=== PATIENT | female | born 1990 | race Caucasian/White ===

== ENCOUNTER 2017-10-10 09:37 | Emergency (ER) | payer OTHER ==
[2017-10-10 09:48] VITALS: BP 133/96
[2017-10-10] MEDS ORDERED: HYDROmorphone 0.5 MG/0.5 ML Syringe IVPUSH ONE ×2 (10:05→12:44)
[2017-10-10] MEDS ORDERED: Metoclopramide 10 MG/2 ML SDV IVPUSH ONE (10:06)
--- NOTE | 2017-10-10 10:09 | EDM.PDOC ---
ED HPI GENERAL MEDICAL PROBLEM - General Chief Complaint: Abdominal Pain Stated Complaint: ABDOMINAL PAIN Time Seen by Provider: 10/10/17 10:04 Source of Information: Reports: Patient History Limitations: Reports: No Limitations - History of Present Illness INITIAL COMMENTS - FREE TEXT/NARRATIVE: 26-year-old female sent to the ED with acute onset of severe abdominal pain. Seem to start in the upper abdomen radiate down into the pelvis. She was at work when this occurred. She felt fine when she got up this morning. She has not had much to eat yet some essential oils and some water only. Pain was intense enough to make her nearly vomit but she did not. Of note she is expecting her period in the next 4-5 days. She is trying to conceive and not using any form of control. Bowel function is normal. No genitourinary complaints. Previous surgery includes a laparoscopic appendectomy. She has not been in the past. Feels warm and flushed. Pain does radiate into her lower back Onset: Today Onset Date: 10/10/17 Onset Time: 08:00 Duration: Hour(s): Location: Reports: Abdomen (Bout 2 hours ago see history present illness) Quality: Reports: Ache, Other Severity: Moderate (Abdominal pain is sharp and stabbing with intermittent colicky component.) Improves with: Reports: None ( Pain is 8-9 out of 10) Worsens with: Reports: Other, Movement Context: Reports: Other. Denies: Activity (Deep breathing. She walks function over.), Exercise, Lifting, Sick Contact, Trauma Associated Symptoms: Reports: Nausea/Vomiting. 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 (see below) (None.) Upper Abdomen Pain Score (Numeric/FACES): 6 - Related Data Allergies Allergy/AdvReac Type Severity Reaction Status Date / Time No Known Allergies Allergy Verified 11/16/15 11:54 Home Meds: Home Meds Vaginal Suppository Applicator 1 dose VAG BID 10/10/17 [History] Past Medical History - Past Health History Medical/Surgical History: Denies Medical/Surgical History HEENT History: Reports: Impaired Vision - Past Surgical History Other HEENT Surgeries/Procedures: wisdom teeth removed GI Surgical History: Reports: Appendectomy Social & Family History - Tobacco Use Smoking Status *Q: Current Every Day Smoker Years of Tobacco use: 4 Packs/Tins Daily: 0.2 - Caffeine Use Caffeine Use: Reports: Coffee - Recreational Drug Use Recreational Drug Use: No - Living Situation & Occupation Living situation: Reports: Occupation: Employed ED ROS GENERAL - Review of Systems Review Of Systems: See Below Constitutional: Reports: Fever (Feels hot and flushed have joint was 38.55 nurses recording.), Malaise, Weakness, Decreased Appetite HEENT: Reports: No Symptoms Respiratory: Reports: No Symptoms Cardiovascular: Reports: No Symptoms Endocrine: Reports: No Symptoms GI/Abdominal: Reports: Abdominal Pain (Particularly just above the umbilicus but radiates down into both sides of the pelvis and suprapubically and into her lower back.). Denies: Diarrhea, Decreased Appetite, Difficulty Swallowing, Distension, Flatus, Hematemesis, Hematochezia, Melena, Mucous in Stool : Reports: No Symptoms Musculoskeletal: Reports: Back Pain Skin: Reports: No Symptoms Neurological: Reports: No Symptoms ED EXAM, GI/ABD - Physical Exam Exam: See Below Exam Limited By: No Limitations General Appearance: Alert, Moderate Distress Eyes: Bilateral: Normal Appearance (In obvious discomfort. No jaundice) Throat/Mouth: Normal Inspection, Normal Lips, Normal Teeth, Normal Oropharynx Head: Atraumatic, Normocephalic Neck: Normal Inspection, Supple, Non-Tender, Full Range of Motion. No: Lymphadenopathy (L), Lymphadenopathy (R) Respiratory/Chest: No Respiratory Distress, Lungs Clear, Normal Breath Sounds, Chest Non-Tender, Other Cardiovascular: Normal Peripheral Pulses (Deep breathing does make the abdominal pain worse.), Regular Rate, Rhythm, No Edema, No Gallop, No Murmur GI/Abdominal Exam: No Organomegaly, Guarding, Tender (Patient is very tender left lower quadrant right lower quadrant and suprapubically with guarding.), Abnormal Bowel Sounds (Absence of bowel sounds.), Other (Abdomen is firm to palpation and she is fairly well muscled. She has a linear surgical incision left lateral lower abdominal wall from a skin lesion removal.) Rectal (Female) Exam: Normal Exam Back Exam: Normal Inspection, Full Range of Motion Extremities: Normal Inspection, Normal Range of Motion, Non-Tender, No Pedal Edema Neurological: Alert, Oriented, CN II-XII Intact, Normal Cognition, Normal Gait Psychiatric: Normal Affect, Normal Mood Skin Exam: Warm, Dry, Intact, Normal Color Course - Vital Signs Last Recorded V/S: Last Vital Signs Temp 38.5 C H 10/10/17 09:46 Pulse 85 10/10/17 09:46 Resp 15 10/10/17 09:46 BP 133/96 H 10/10/17 09:46 Pulse Ox 100 10/10/17 09:46 - Orders/Labs/Meds Orders: Active Orders 24 hr Category Date Time Status ABO/RH TYPE [BBK] Stat Lab 10/10/17 10:25 Results PATIENT RETYPE [BBK] Stat Lab 10/10/17 10:25 Results Labs: Laboratory Tests 10/10/17 10/10/17 10/10/17 Range/Units 10:25 10:25 10:25 WBC 7.54 (3.98-10.04) K/mm3 RBC 4.26 (3.98-5.22) M/mm3 Hgb 13.1 (11.2-15.7) gm/L Hct 38.8 (34.1-44.9) % MCV 91.1 (79.4-94.8) fl MCH 30.8 (25.6-32.2) pg MCHC 33.8 (32.2-35.5) g/dl RDW Std Deviation 45.7 (36.4-46.3) fL Plt Count 243 (182-369) K/mm3 MPV 10.7 (9.4-12.3) fl Neutrophils % (Manual) 49 (40-60) % Band Neutrophils % 0 (0-10) % Lymphocytes % (Manual) 46 H (20-40) % Atypical Lymphs % 0 % Monocytes % (Manual) 5 (2-10) % Eosinophils % (Manual) 0 L (0.7-5.8) % Basophils % (Manual) 0 L (0.1-1.2) Platelet Estimate Adequate RBC Morph Comment Normal Sodium 138 (136-145) mEq/L Potassium 4.1 (3.5-5.1) mEq/L Chloride 105 (98-107) mEq/L Carbon Dioxide 24 (21-32) mEq/L Anion Gap 13.1 (5-15) BUN 12 (7-18) mg/dL Creatinine 0.6 (0.55-1.02) mg/dL Est Cr Clr Drug Dosing 145.88 mL/min Estimated GFR (MDRD) > 60 (>60) mL/min BUN/Creatinine Ratio 20.0 H (14-18) Glucose 89 (74-106) mg/dL Calcium 8.8 (8.5-10.1) mg/dL Total Bilirubin 0.3 (0.2-1.0) mg/dL AST 21 (15-37) U/L ALT 24 (14-59) U/L Alkaline Phosphatase 68 (46-116) U/L C-Reactive Protein < 0.2 (<1.0) mg/dL Total Protein 7.7 (6.4-8.2) g/dl Albumin 4.0 (3.4-5.0) g/dl Globulin 3.7 gm/dL Albumin/Globulin Ratio 1.1 (1-2) Lipase 100 (73-393) U/L HCG, Qual Negative (NEGATIVE) Urine Color (Yellow) Urine Appearance (Clear) Urine pH (5.0-8.0) Ur Specific [place] (1.005-1.030) Urine Protein (Negative) Urine Glucose (UA) (Negative) Urine Ketones (Negative) Urine Occult Blood (Negative) Urine Nitrite (Negative) Urine Bilirubin (Negative) Urine Urobilinogen (0.2-1.0) Ur Leukocyte Esterase (Negative) Urine RBC (0-5) /hpf Urine WBC (0-5) /hpf Ur Epithelial Cells (0-5) /hpf Urine Bacteria (FEW) /hpf Urine Mucus (FEW) /hpf Blood Type 10/10/17 10/10/17 Range/Units 10:25 10:45 WBC (3.98-10.04) K/mm3 RBC (3.98-5.22) M/mm3 Hgb (11.2-15.7) gm/L Hct (34.1-44.9) % MCV (79.4-94.8) fl MCH (25.6-32.2) pg MCHC (32.2-35.5) g/dl RDW Std Deviation (36.4-46.3) fL Plt Count (182-369) K/mm3 MPV (9.4-12.3) fl Neutrophils % (Manual) (40-60) % Band Neutrophils % (0-10) % Lymphocytes % (Manual) (20-40) % Atypical Lymphs % % Monocytes % (Manual) (2-10) % Eosinophils % (Manual) (0.7-5.8) % Basophils % (Manual) (0.1-1.2) Platelet Estimate RBC Morph Comment Sodium (136-145) mEq/L Potassium (3.5-5.1) mEq/L Chloride (98-107) mEq/L Carbon Dioxide (21-32) mEq/L Anion Gap (5-15) BUN (7-18) mg/dL Creatinine (0.55-1.02) mg/dL Est Cr Clr Drug Dosing mL/min Estimated GFR (MDRD) (>60) mL/min BUN/Creatinine Ratio (14-18) Glucose (74-106) mg/dL Calcium (8.5-10.1) mg/dL Total Bilirubin (0.2-1.0) mg/dL AST (15-37) U/L ALT (14-59) U/L Alkaline Phosphatase (46-116) U/L C-Reactive Protein (<1.0) mg/dL Total Protein (6.4-8.2) g/dl Albumin (3.4-5.0) g/dl Globulin gm/dL Albumin/Globulin Ratio (1-2) Lipase (73-393) U/L HCG, Qual (NEGATIVE) Urine Color Yellow (Yellow) Urine Appearance Clear (Clear) Urine pH 6.5 (5.0-8.0) Ur Specific [place] 1.025 (1.005-1.030) Urine Protein Negative (Negative) Urine Glucose (UA) Negative (Negative) Urine Ketones 1+ H (Negative) Urine Occult Blood Negative (Negative) Urine Nitrite Negative (Negative) Urine Bilirubin Negative (Negative) Urine Urobilinogen 0.2 (0.2-1.0) Ur Leukocyte Esterase Negative (Negative) Urine RBC 0-5 (0-5) /hpf Urine WBC 0-5 (0-5) /hpf Ur Epithelial Cells 0-5 (0-5) /hpf Urine Bacteria Few (FEW) /hpf Urine Mucus Few (FEW) /hpf Blood Type B POSITIVE Meds: Medications Discontinued Medications Generic Name Dose Route Start Last Admin Trade Name Freq PRN Reason Stop Dose Admin Diphenhydramine HCl 25 mg 10/10/17 12:44 10/10/17 12:56 Benadryl IVPUSH 10/10/17 12:45 25 mg ONETIME ONE Administration Hydromorphone HCl 0.5 mg 10/10/17 10:05 10/10/17 10:27 Dilaudid IVPUSH 10/10/17 10:06 0.5 mg ONETIME ONE Administration Hydromorphone HCl 0.5 mg 10/10/17 12:44 10/10/17 12:58 Dilaudid IVPUSH 10/10/17 12:45 0.5 mg ONETIME ONE Administration Dextrose/Sodium Chloride 1,000 mls @ 999 mls/hr 10/10/17 10:15 10/10/17 10:27 Dextrose 5%-Normal Saline IV 999 mls/hr ASDIRECTED SABRA Administration Magnesium Citrate 180 ml 10/10/17 14:01 10/10/17 14:25 Citrate Of Magnesia PO 10/10/17 14:02 180 ml ONETIME ONE Administration Metoclopramide HCl 7.5 mg 10/10/17 10:06 10/10/17 10:26 Reglan IVPUSH 10/10/17 10:07 7.5 mg ONETIME ONE Administration Ondansetron HCl 4 mg 10/10/17 12:44 10/10/17 12:55 Zofran IVPUSH 10/10/17 12:45 4 mg ONETIME ONE Administration - Radiology Interpretation Free Text/Narrative:: 26-year-old female presents the ED with development of sudden onset of severe central abdominal pain kind of in the suprapubic area and supraumbilical area and seems to radiate up and down. Pain came on suddenly when she was seated at her desk at work this morning. Pain was very sharp stabbing and tends to move around. Pain has been intense for an hour however associate with nausea without any vomiting. Was did move this morning and were normal. Of note she is attempting and expecting her period in about 5 days' time. She is not using any form of control. Plan routine labs including a beta-hCG. IV will be D5 normal saline at 150 mils per hour. Given Dilaudid 1.5 mg IV with Reglan 7.5 mg IV for initial pain and nausea relief. - Re-Assessments/Exams Free Text/Narrative Re-Assessment/Exam: 10/10/17 12:39 Labs reveal a total white count of 7.54 with a hemoglobin of 13.1. Hematocrit is 38.8. Differential is 49% neutrophils and 46% lymphocytes which is slightly elevated. Chemistry shows a sodium of 138 potassium of 4.1. Chloride 105 bicarbonate 24. And a gap is 13.1. The wind is 12. Creatinine is 0.6. GFR is greater than 60. Glucose is 89. Liver function is normal. Lipase is 100 hCG was negative. Urinalysis shows 1+ ketones only with no signs of infection or hematuria. 10/10/17 12:45 patient is feeling nauseated and the pain is coming in waves. She will be for a KUB and then be have a transvaginal ultrasound to rule out a ruptured ovarian cyst which I believe is what she has clinically. We'll give her Zofran 4 mg IV with Benadryl 25 mg IV to prevent a dystonic reaction with Zofran and Reglan. Repeat Dilaudid 0.5 mg IV. 10/10/17 13:24 KUB does reveal increased stool in the left hemicolon and perhaps some free fluid down in the abdomen pelvis. Is a large amount of air distending the right hemicolon and transverse colon. 10/10/17 14:00 Transvaginal ultrasound also does not reveal any abnormalities of the ovaries or any free fluid in the pelvis. It therefore appears that her pain is mostly from constipation with large volume of air distending the colon causing her acute pain. Treatment will be 6 ounces of Citroma orally with 5 ounces of juice to provide bowel cleanse. This should relieve her abdominal pain completely. If not she is to return to care. Departure - Departure Time of Disposition: 14:03 Disposition: Home, Self-Care 01 Condition: Fair Clinical Impression: Constipation by delayed colonic transit Abdominal pain Qualifiers: Abdominal location: lower abdomen, unspecified Qualified Code(s): R10.30 - Lower abdominal pain, unspecified - Discharge Information Instructions: Abdominal Pain, Adult, [id number] Referrals: PCP,None [Primary Care Provider] - Forms: ED Department Discharge, ED Return to Work/School Form Additional Instructions: Evaluation in the emergency room today in regards to acute onset of severe lower abdominal pain while seated at her desk at work today. Concern arose as you are attempting and. Is due within the next week. Pain was compatible with an ovarian cyst rupture or ectopic . Lab work however reveals point she test to be negative. The lab some cells were essentially normal. Urinalysis is also normal. An x-ray of the abdomen shows increased stool and a large amount of air distending the colon on the left side and upper abdomen. There is increased stool in the left lower colon that is causing a bit of a plug and causing your abdominal pain. Pelvic ultrasound was also ordered to rule out any ovarian involvement in pain. The ovaries appeared to be healthy with follicular cysts evident bilaterally sign of hemorrhagic cyst or rupture. Treatment is therefore magnesium citrate 6 ounces of this medicine by mouth with 5 ounces of juice of choice or Gatorade Powerade. This usually starts to work in 1-2 hours and will produce 2 or 2 formed bowel movements and should clear your abdominal pain completely. They eat and drink per normal. Return to medical care for bowel pain not gone after bowel cleanse. - My Orders Last 24 Hours: My Active Orders 10/10/17 10:25 ABO/RH TYPE [BBK] Stat PATIENT RETYPE [BBK] Stat - Assessment/Plan Last 24 Hours: My Active Orders 10/10/17 10:25 ABO/RH TYPE [BBK] Stat PATIENT RETYPE [BBK] Stat
[2017-10-10] MEDS ORDERED: Dextrose 5%-0.9% NaCl 1,000 ML IV SCH (10:15)
[2017-10-10] MEDS ORDERED: Ondansetron 4 MG/2 ML SDV IVPUSH ONE (12:44)
[2017-10-10] MEDS ORDERED: diphenhydrAMINE 50 MG/ML SDV IVPUSH ONE (12:44)
[2017-10-10] MEDS ORDERED: Magnesium Citrate Solution 296 ML Bottle PO ONE (14:01)
--- NOTE | 2017-10-10 14:32 | US ---
Pelvic ultrasound: Multiple real-time images were obtained transvaginally of the pelvis. Comparison: Uterus is anteverted. No myometrial abnormality is seen. Endometrial thickness is 8 mm. No nabothian cysts are seen. Ovaries show normal follicles. No larger cyst or solid abnormality is seen. No free fluid is identified. Measurements: Uterus: Length 6.4 cm, AP height 3.1 cm, transverse width of 5.0 cm Right ovary: 3.7 x 1.7 x 2.2 cm Left ovary: 3.4 x 2.0 x 2.2 cm Impression: 1. No abnormality is identified on pelvic ultrasound exam. Diagnostic code #1
--- NOTE | 2017-10-10 14:44 | CR ---
Abdomen: Supine view of the abdomen was obtained. Slight increased gas within the colon is seen and felt to be normal variant. Bowel gas pattern is otherwise unremarkable. No abnormal calcifications or soft tissue abnormality is seen. Impression: 1. Slight increased gas within the colon as noted above. 2. Supine abdominal study is otherwise unremarkable. Diagnostic code #1
== END 2017-10-10 14:30 | disposition home or self-care (01) ==
LOC: JD.ED 09:37
DX: K59.01 Slow transit constipation (principal); F17.210 Nicotine dependence, cigarettes, uncomplicated
CPT/HCPCS: 36415; 74018; 76830; 80053; 81001; 83690; 84703; 85025; 86140; 86900; 86901; 96361; 96374; 96375; 96376; 99285; A9270; J1170; J1200; J2405; J2765; J7042; 99284

== ENCOUNTER 2017-10-14 17:14 | Emergency (ER) | payer OTHER ==
[2017-10-14 17:32] VITALS: BP 129/97
--- NOTE | 2017-10-14 17:45 | EDM.PDOC ---
ED HPI GENERAL MEDICAL PROBLEM - General Chief Complaint: Gastrointestinal Problem Stated Complaint: BOWEL ISSUES Time Seen by Provider: 10/14/17 17:40 Source of Information: Reports: Patient History Limitations: Reports: No Limitations - History of Present Illness INITIAL COMMENTS - FREE TEXT/NARRATIVE: 26-year-old female presents to the ED with diffuse abdominal bloat and pressure discomfort in the rectum. I had seen her through the ED 4 days ago when she developed sudden onset of severe suprapubic pain rating up into the epigastrium. Workup at that time included lab work KUB rule out and she actually at a transvaginal ultrasound to make sure she did not have a ruptured ovarian cyst. No cystic masses were identified in the ovaries. She is trying to conceive and expects appear to be due this weekend. She did have increased stool throughout the left hemicolon was treated with Citroma 6 ounces by mouth. She states this relieved her abdominal pain and get her bowels working once or twice that day. Subsequently she's not had a bowel movement. Today she feels a lot of pressure in the rectum and is getting some liquid stool but no formed stool. She reports she still has an appetite and is eating normally.. Has not yet shown up. Onset: Gradual Onset Date: 10/13/17 Duration: Day(s): Location: Reports: Abdomen (Feels very bloated and distended with rectal pressure discomfort.) Quality: Reports: Pressure Severity: Moderate (Bloated and pressure discomfort in the abdomen) Improves with: Reports: None Worsens with: Reports: Other Context: Denies: Activity (Sitting.), Exercise, Lifting, Sick Contact, Trauma, Other Associated Symptoms: Denies: No Other Symptoms, Confusion, Chest Pain, Cough, cough w sputum, Diaphoresis, Fever/Chills, Headaches, Loss of Appetite, Malaise , Nausea/Vomiting, Rash, Seizure, Shortness of Breath, Syncope, Weakness 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 (see below) (None since she took Citroma the other night.) Abdomen Pain Score (Numeric/FACES): 4 - Related Data Allergies Allergy/AdvReac Type Severity Reaction Status Date / Time No Known Allergies Allergy Verified 10/14/17 17:27 Home Meds: Home Meds Polyethylene Glycol 3350 [MiraLAX] 17 gm PO DAILY #1 cont 10/14/17 [Rx] Past Medical History - Past Health History Medical/Surgical History: Denies Medical/Surgical History HEENT History: Reports: Impaired Vision - Past Surgical History Other HEENT Surgeries/Procedures: wisdom teeth removed GI Surgical History: Reports: Appendectomy Social & Family History - Tobacco Use Smoking Status *Q: Current Every Day Smoker Years of Tobacco use: 4 Packs/Tins Daily: 0.2 - Caffeine Use Caffeine Use: Reports: Coffee - Recreational Drug Use Recreational Drug Use: No - Living Situation & Occupation Living situation: Reports: Occupation: Employed ED ROS GENERAL - Review of Systems Review Of Systems: See Below Constitutional: Denies: Fever, Chills, Malaise, Weakness, Fatigue, Decreased Appetite, Weight Loss HEENT: Reports: No Symptoms Respiratory: Reports: No Symptoms Cardiovascular: Reports: No Symptoms Endocrine: Reports: No Symptoms GI/Abdominal: Reports: Abdominal Pain (No real abdominal pain but a diffuse pressure and bloated feeling), Distension. Denies: Constipation, Diarrhea, Decreased Appetite, Difficulty Swallowing, Flatus, Hematemesis, Hematochezia, Melena, Stool Incontinence, Vomiting, Other : Reports: No Symptoms Musculoskeletal: Reports: No Symptoms Skin: Reports: No Symptoms Neurological: Reports: No Symptoms ED EXAM, GI/ABD - Physical Exam Exam: See Below Exam Limited By: No Limitations General Appearance: Alert, WD/WN, Mild Distress Eyes: Bilateral: Normal Appearance (No jaundice.) Respiratory/Chest: No Respiratory Distress, Lungs Clear, Normal Breath Sounds Cardiovascular: Normal Peripheral Pulses, Regular Rate, Rhythm, No Edema, No Murmur GI/Abdominal Exam: Soft, Non-Tender, No Organomegaly, No Abnormal Bruit, No Mass , Pelvis Stable, Distended (Hypoactive bowel sounds mildly distended but firm to palpation.), Abnormal Bowel Sounds Back Exam: Normal Inspection, Full Range of Motion. No: CVA Tenderness (L), CVA Tenderness (R) Extremities: Normal Inspection, Normal Range of Motion, Non-Tender, No Pedal Edema Neurological: Alert, Oriented, CN II-XII Intact, Normal Cognition, Normal Gait Psychiatric: Normal Affect, Normal Mood Skin Exam: Warm, Dry, Intact, Normal Color, No Rash Course - Vital Signs Last Recorded V/S: Last Vital Signs Temp 37.3 C 10/14/17 17:28 Pulse 81 10/14/17 17:28 Resp 18 10/14/17 17:28 BP 129/97 H 10/14/17 17:28 Pulse Ox 99 10/14/17 17:28 - Orders/Labs/Meds Orders: Active Orders 24 hr Category Date Time Status Enema [RC] ASDIRECTED Care 10/14/17 18:37 Active Abdomen 1V Flat [CR] Stat Exams 10/14/17 17:46 Taken Magnesium Citrate [Citrate of Magnesia] Med 10/14/17 19:24 Once 300 ml PO ONETIME ONE - Radiology Interpretation Free Text/Narrative:: 18-year-old female presents to the ED with diffuse abdominal pressure discomfort and bloat. I've seen her 4-5 days ago through the ED when she developed acute onset of lower abdominal pain rating up into her epigastrium while seated at her desk at work. The workup included to blood tests a transvaginal ultrasound to rule out ovarian cyst and x-rays. Did find increased stool throughout the left hemicolon. Transvaginal ultrasound was negative for ovarian cyst. She was too was Citroma 6 ounces by mouth of which she states did give her a bowel movement or 2 and she did get rid of her abdominal pain. Since that she's had no bowel movement but has feeling of increased abdominal bloat and pressure discomfort and rectal pressure. She's had some worsening of stool but cannot pass any stool she has the feeling of need to defecate however. Examination shows benign abdominal examination but she is indeed bloated with a well muscled abdominal wall. Land KUB to be repeated. - Re-Assessments/Exams Free Text/Narrative Re-Assessment/Exam: 10/14/17 18:38 KUB reveals a large amount of stool throughout almost the entire colon. There is particular a large amount in the rectal vault causing her current symptoms. It's unclear why she has become constipated as she's not taking any [id number] medications that would slow the bowel down. She is taking a vitamin that may contain iron and calcium and may be part of the problem. Plan Fleet enema with mineral oil to be given to give her some immediate relief. She will then take Citroma 10 ounces by mouth when she gets home tonight to clean the rest of her colon out. She'll then start MiraLAX powder 17 g daily for the next 3 weeks to make sure that her bowel stays regular. She'll discontinue the vitamin images day with folic acid 1 mg tablets daily to support as she is trying to conceive. Departure - Departure Time of Disposition: 19:45 Disposition: Home, Self-Care 01 Condition: Fair Clinical Impression: Constipation by delayed colonic transit - Discharge Information Prescriptions: Polyethylene Glycol 3350 [MiraLAX] 17 gm PO DAILY #1 cont Referrals: Rustam Rosario MD [Primary Care Provider] - Forms: ED Department Discharge Additional Instructions: Evaluation in the emergency room today in regards to development of diffuse bloated abdominal pressure discomfort with rectal pressure and a feeling of need to have a bowel movement. Abdominal examination does indeed reveal diffuse bloated abdomen. Bowel sounds were present but not super overactive. An x-ray of the abdomen however shows increased stool throughout the entire colon much worse than it looked 4 days ago when we had performed the same examination. You' re given a Fleet enema in the ED with mineral oil to get rid of the stool plug in the rectal vault. I would suggest taking 10 ounces of Citroma by mouth tonight when you get home when usually it starts to work in 1-2 hours and will provide further bowel cleanse. After this I would suggest stopping your vitamin as it contains iron and calcium 8 which may be slowing the bowel down causing constipation. Suggest picking up folic acid 1 mg tablets from [employer] store tomorrow and taking this once daily until you can see. Suggest MiraLAX powder 17 g or 1 scoop a powder daily mixed with any juice of choice or water intake for the next 3 weeks to make sure that you bowel stay regular and prevent problems with constipation. - My Orders Last 24 Hours: My Active Orders 10/14/17 17:46 Abdomen 1V Flat [CR] Stat 10/14/17 18:37 Enema [RC] ASDIRECTED 10/14/17 19:24 Magnesium Citrate [Citrate of Magnesia] 300 ml PO ONETIME ONE - Assessment/Plan Last 24 Hours: My Active Orders 10/14/17 17:46 Abdomen 1V Flat [CR] Stat 10/14/17 18:37 Enema [RC] ASDIRECTED 10/14/17 19:24 Magnesium Citrate [Citrate of Magnesia] 300 ml PO ONETIME ONE
[2017-10-14] MEDS ORDERED: Magnesium Citrate Solution 296 ML Bottle PO ONE (19:24)
--- NOTE | 2017-10-16 17:47 | CR ---
Abdomen: Supine view of the abdomen was obtained. Comparison: Prior abdominal x-ray of 10/10/17. Mild increased stool is seen throughout colon. Bowel gas pattern is otherwise unremarkable. No abnormal calcifications or soft tissue abnormality is seen. Bony structures are unremarkable. Impression: 1. Mild increased stool throughout colon. 2. Supine abdominal x-ray is otherwise unremarkable. Diagnostic code #2
== END 2017-10-14 19:48 | disposition home or self-care (01) ==
LOC: JD.ED 17:14
DX: K59.01 Slow transit constipation (principal); F17.210 Nicotine dependence, cigarettes, uncomplicated; Z90.49 Acquired absence of other specified parts of digestive tract
CPT/HCPCS: 74018; 74018-26; 99284; A9270-GY

== ENCOUNTER 2017-11-25 19:17 | Emergency (ER) | payer OTHER ==
[2017-11-25 19:30] VITALS: BP 141/96
--- NOTE | 2017-11-25 20:46 | EDM.PDOC ---
ED HPI GENERAL MEDICAL PROBLEM - General Chief Complaint: Abdominal Pain Stated Complaint: ABDOMINAL PAIN Time Seen by Provider: 11/25/17 19:34 Source of Information: Reports: Patient, Significant Other (Boyfriend) History Limitations: Reports: No Limitations - History of Present Illness INITIAL COMMENTS - FREE TEXT/NARRATIVE: The patient states that she has generalized abdominal pain, a burning sensation in the upper abdomen, a "pulling" sensation in the lower abdomen, along with lower back pain and feeling bloated that began around 14:00 this afternoon. The pain is constant, but getting worse. It is made better if she is supine, worse if she is upright or moving. She has had nausea for the past 2 days, but no emesis. She has had some hot flashes, but no fever. No constipation, diarrhea, or urinary symptoms. No prior similar symptoms. The patient has not tried any home remedies. The patient is on clomiphene for ovarian dysfunction. She and her boyfriend are trying to get . The patient does not have a PCP, however, her Security Incident Handler is Dr. Rosario. Abdominal Pain Score (Numeric/FACES): 6 - Related Data Allergies Allergy/AdvReac Type Severity Reaction Status Date / Time No Known Allergies Allergy Verified 11/25/17 19:25 Home Meds: Home Meds ClomiPHENE [ClomiPHENE Citrate] 50 mg PO DAILY 11/25/17 [History] Past Medical History HEENT History: Reports: Impaired Vision CRITICAL CARE UNIT NURSE History: Reports: Other (See Below) (Ovarian dysfunction) - Past Surgical History Other HEENT Surgeries/Procedures: wisdom teeth removed GI Surgical History: Reports: Appendectomy Social & Family History - Tobacco Use Smoking Status *Q: Current Every Day Smoker Years of Tobacco use: 4 Packs/Tins Daily: 0.5 - Caffeine Use Caffeine Use: Reports: Coffee - Alcohol Use Alcohol Use History: Yes Alcohol Use Frequency: Socially - Recreational Drug Use Recreational Drug Use: No - Living Situation & Occupation Living situation: Reports: Single, with Significant Other (Boyfriend) 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 ED EXAM, GI/ABD - Physical Exam Exam: See Below Exam Limited By: No Limitations General Appearance: Alert, WD/WN, No Apparent Distress Eyes: Bilateral: Normal Appearance, EOMI Ears: Normal External Exam, Hearing Grossly Normal Nose: Normal Inspection, No Blood Throat/Mouth: Normal Inspection, Normal Lips, Normal Voice, No Airway Compromise Head: Atraumatic, Normocephalic Neck: Normal Inspection, Full Range of Motion Respiratory/Chest: No Respiratory Distress, Lungs Clear, Normal Breath Sounds, No Accessory Muscle Use Cardiovascular: Normal Peripheral Pulses, Regular Rate, Rhythm, No Edema, No Gallop, No JVD, No Murmur, No Rub GI/Abdominal Exam: Normal Bowel Sounds, Soft, No Organomegaly, No Distention, No Abnormal Bruit, No Mass, Tender (Generalized, non-focal) (Female) Exam: Deferred Rectal (Female) Exam: Deferred Back Exam: Normal Inspection, Full Range of Motion, NT Extremities: Normal Inspection, Normal Range of Motion, No Pedal Edema, Normal Capillary Refill Neurological: Alert, Oriented, Normal Cognition, No Motor/Sensory Deficits Psychiatric: Normal Affect Skin Exam: Warm, Dry, Intact, Normal Color, No Rash Course - Vital Signs Last Recorded V/S: Last Vital Signs Temp 36.8 C 11/25/17 19:26 Pulse 84 11/25/17 19:26 Resp 18 11/25/17 19:26 BP 141/96 H 11/25/17 19:26 Pulse Ox 95 11/25/17 19:26 - Orders/Labs/Meds Orders: Active Orders 24 hr Category Date Time Status Abdomen 1V Upright [CR] Stat Exams 11/25/17 19:55 Taken Labs: Laboratory Tests 11/25/17 11/25/17 11/25/17 Range/Units 19:53 19:53 19:56 WBC 8.08 (3.98-10.04) K/mm3 RBC 4.18 (3.98-5.22) M/mm3 Hgb 12.6 (11.2-15.7) gm/L Hct 38.0 (34.1-44.9) % MCV 90.9 (79.4-94.8) fl MCH 30.1 (25.6-32.2) pg MCHC 33.2 (32.2-35.5) g/dl RDW Std Deviation 42.3 (36.4-46.3) fL Plt Count 241 (182-369) K/mm3 MPV 10.6 (9.4-12.3) fl Neutrophils % (Manual) 53 (40-60) % Band Neutrophils % 0 (0-10) % Lymphocytes % (Manual) 40 (20-40) % Atypical Lymphs % 0 % Monocytes % (Manual) 4 (2-10) % Eosinophils % (Manual) 2 (0.7-5.8) % Basophils % (Manual) 1 (0.1-1.2) Platelet Estimate Adequate Plt Morphology Comment Normal RBC Morph Comment Normal Sodium 139 (136-145) mEq/L Potassium 3.8 (3.5-5.1) mEq/L Chloride 104 (98-107) mEq/L Carbon Dioxide 27 (21-32) mEq/L Anion Gap 11.8 (5-15) BUN 19 H (7-18) mg/dL Creatinine 0.8 (0.55-1.02) mg/dL Est Cr Clr Drug Dosing 109.41 mL/min Estimated GFR (MDRD) > 60 (>60) mL/min BUN/Creatinine Ratio 23.8 H (14-18) Glucose 98 (74-106) mg/dL Calcium 8.7 (8.5-10.1) mg/dL Total Bilirubin 0.7 (0.2-1.0) mg/dL AST 15 (15-37) U/L ALT 16 (14-59) U/L Alkaline Phosphatase 62 (46-116) U/L Total Protein 6.9 (6.4-8.2) g/dl Albumin 3.7 (3.4-5.0) g/dl Globulin 3.2 gm/dL Albumin/Globulin Ratio 1.2 (1-2) Lipase 113 (73-393) U/L Urine Color (Yellow) Urine Appearance (Clear) Urine pH (5.0-8.0) Ur Specific [place] (1.005-1.030) Urine Protein (Negative) Urine Glucose (UA) (Negative) Urine Ketones (Negative) Urine Occult Blood (Negative) Urine Nitrite (Negative) Urine Bilirubin (Negative) Urine Urobilinogen (0.2-1.0) Ur Leukocyte Esterase (Negative) Urine RBC (0-5) /hpf Urine WBC (0-5) /hpf Ur Epithelial Cells (0-5) /hpf Urine Bacteria (FEW) /hpf Urine Mucus (FEW) /hpf Urine HCG, Qual Negative (NEGATIVE) 03/23/18 Range/Units 19:57 WBC (3.98-10.04) K/mm3 RBC (3.98-5.22) M/mm3 Hgb (11.2-15.7) gm/L Hct (34.1-44.9) % MCV (79.4-94.8) fl MCH (25.6-32.2) pg MCHC (32.2-35.5) g/dl RDW Std Deviation (36.4-46.3) fL Plt Count (182-369) K/mm3 MPV (9.4-12.3) fl Neutrophils % (Manual) (40-60) % Band Neutrophils % (0-10) % Lymphocytes % (Manual) (20-40) % Atypical Lymphs % % Monocytes % (Manual) (2-10) % Eosinophils % (Manual) (0.7-5.8) % Basophils % (Manual) (0.1-1.2) Platelet Estimate Plt Morphology Comment RBC Morph Comment Sodium (136-145) mEq/L Potassium (3.5-5.1) mEq/L Chloride (98-107) mEq/L Carbon Dioxide (21-32) mEq/L Anion Gap (5-15) BUN (7-18) mg/dL Creatinine (0.55-1.02) mg/dL Est Cr Clr Drug Dosing mL/min Estimated GFR (MDRD) (>60) mL/min BUN/Creatinine Ratio (14-18) Glucose (74-106) mg/dL Calcium (8.5-10.1) mg/dL Total Bilirubin (0.2-1.0) mg/dL AST (15-37) U/L ALT (14-59) U/L Alkaline Phosphatase (46-116) U/L Total Protein (6.4-8.2) g/dl Albumin (3.4-5.0) g/dl Globulin gm/dL Albumin/Globulin Ratio (1-2) Lipase (73-393) U/L Urine Color Yellow (Yellow) Urine Appearance Clear (Clear) Urine pH 6.5 (5.0-8.0) Ur Specific [place] 1.020 (1.005-1.030) Urine Protein Negative (Negative) Urine Glucose (UA) Negative (Negative) Urine Ketones Negative (Negative) Urine Occult Blood Negative (Negative) Urine Nitrite Negative (Negative) Urine Bilirubin Negative (Negative) Urine Urobilinogen 0.2 (0.2-1.0) Ur Leukocyte Esterase Negative (Negative) Urine RBC 0-5 (0-5) /hpf Urine WBC 0-5 (0-5) /hpf Ur Epithelial Cells 0-5 (0-5) /hpf Urine Bacteria Few (FEW) /hpf Urine Mucus Not seen (FEW) /hpf Urine HCG, Qual (NEGATIVE) - Re-Assessments/Exams Free Text/Narrative Re-Assessment/Exam: 11/25/17 20:46 Upright abdominal radiograph appears to be grossly normal. Nonspecific bowel gas pattern. No free air. Formal read per the Radiologist pending. 11/25/17 20:51 Test results discussed with the patient and her boyfriend. Today's workup is entirely unremarkable and does not explain the cause of the patient's symptoms. The only other option I have available to further evaluate the patient would be a CT scan of the abdomen and pelvis, however, I advised against it, given the radiation risk and the low pretest probability of finding a significant abnormality. My recommendation is that if the patient continues to have pain by this coming Tuesday, that she follow-up with Dr. Rosario, who could potentially order a MRI of the abdomen, which would not carry radiation risk. Alternatively , if her symptoms worsen over the , then I would like her to return to the ED for reevaluation. The patient is agreeable. Departure - Departure Time of Disposition: 20:53 Disposition: Home, Self-Care 01 Condition: Good Clinical Impression: Abdominal pain of unknown etiology - Discharge Information Instructions: Abdominal Pain, Adult, [id number] Referrals: Rustam Rosario MD [Primary Care Provider] - Forms: ED Department Discharge Additional Instructions: You were seen in the emergency room for generalized abdominal pain, low back pain, a bloating sensation, nausea, and hot flashes. Workup in the ER included blood work, a urinalysis, a urine test, and an upright abdominal x-ray. Your entire workup was normal, and does not explain the cause of your symptoms. We recommend that if your symptoms persist through the weekend, that you follow- up with your Security Incident Handler, Dr. Rosario, on 11/28/2017, for further evaluation, that MAY include a MRI of your abdomen and pelvis. If your symptoms worsen over the weekend, however, we would like you to return to the ER for reevaluation. - My Orders Last 24 Hours: My Active Orders 11/25/17 19:55 Abdomen 1V Upright [CR] Stat - Assessment/Plan Last 24 Hours: My Active Orders 11/25/17 19:55 Abdomen 1V Upright [CR] Stat
--- NOTE | 2017-11-26 15:44 | CR ---
Abdomen: Upright view of the abdomen was obtained. Comparison: Previous abdominal supine x-ray of 10/14/17. No free air is seen. Bowel gas pattern is normal. No abnormal calcifications are seen. Bony structures are unremarkable. Impression: 1. Unremarkable upright abdominal x-ray. Diagnostic code #1
== END 2017-11-25 21:09 | disposition home or self-care (01) ==
LOC: JD.ED 19:17
DX: R10.9 Unspecified abdominal pain (principal); F17.210 Nicotine dependence, cigarettes, uncomplicated; Z79.899 Other long term (current) drug therapy
CPT/HCPCS: 36415; 74018; 74018-26; 80053; 81001; 81025; 83690; 85025; 99283; 99284

== ENCOUNTER 2018-01-24 07:03 | Day surgery (SDC) | payer OTHER ==
[~2018-01-24 07:03] MED LIST: Lidocaine 1%/Sod Bicarbonate in NS 8.4% 1 ML Syringe IDERM PRN; Sodium Chloride 0.9% 10 ML Syringe FLUSH PRN
[2018-01-24] MEDS ORDERED: Ondansetron 4 MG/2 ML SDV ONE (07:14)
[2018-01-24] MEDS ORDERED: Rocuronium 50 MG/5 ML Vial ONE (07:14)
[2018-01-24] MEDS ORDERED: fentaNYL 250 MCG/5 ML SDV ONE (07:15)
[2018-01-24] MEDS ORDERED: Propofol 200 MG/20 ML SDV ONE (07:15)
[2018-01-24] MEDS ORDERED: Lidocaine 1% 4 ML ONE (07:15)
[2018-01-24] MEDS ORDERED: Methylene Blue 50 MG/10 ML Ampule ONE (07:22)
[2018-01-24] MEDS ORDERED: Bupivacaine 0.5% 30 ML SDV ONE (07:22)
[2018-01-24] MEDS ORDERED: 50% Dextrose in Water 50 ML Syringe ONE (07:22)
[2018-01-24] MEDS ORDERED: Midazolam 1 MG/ML 2 ML SDV ONE (07:25)
[2018-01-24] MEDS: Lactated Ringers 1,000 ML IV SCH ×2 (07:30→10:32)
--- NOTE | 2018-01-24 07:38 | PCM.PREANE ---
Preanesthetic Assessment - Anesthesia/Transfusion/Family Hx Anesthesia History: Prior Anesthesia Reaction (nausea) Family History of Anesthesia Reaction: No Transfusion History: No Prior Transfusion(s) - Review of Systems General: No Symptoms Pulmonary: No Symptoms Cardiovascular: No Symptoms Gastrointestinal: No Symptoms Neurological: Seizure (age 12) Other: Reports: None - Physical Assessment NPO Status Date: 01/23/18 NPO Status Time: 00:00 Pulse: 75 O2 Sat by Pulse Oximetry: 97 Respiratory Rate: 16 Blood Pressure: 121/94 Temperature: 37.1 C Height: 1.75 m Weight: 76.929 kg ASA Class: 2 Mental Status: Alert & Oriented x3 Dentition: Reports: Normal Dentition Thyro-Mental Finger Breadths: 3 Mouth Opening Finger Breadths: 3 ROM/Head Extension: Full Lungs: Clear to Auscultation, Normal Respiratory Effort Cardiovascular: Regular Rate, Regular Rhythm, No Murmurs - Lab Values: Laboratory Last Values WBC 6.26 K/mm3 (3.98-10.04) 01/23/18 12:24 RBC 4.61 M/mm3 (3.98-5.22) 01/23/18 12:24 Hgb 14.0 gm/L (11.2-15.7) 01/23/18 12:24 Hct 42.7 % (34.1-44.9) 01/23/18 12:24 MCV 92.6 fl (79.4-94.8) 01/23/18 12:24 MCH 30.4 pg (25.6-32.2) 01/23/18 12:24 MCHC 32.8 g/dl (32.2-35.5) 01/23/18 12:24 RDW Std Deviation 42.7 fL (36.4-46.3) 01/23/18 12:24 Plt Count 285 K/mm3 (182-369) 01/23/18 12:24 MPV 10.7 fl (9.4-12.3) 01/23/18 12:24 Neut % (Auto) 52.3 % (34.0-71.1) 01/23/18 12:24 Lymph % (Auto) 39.8 % (19.3-51.7) 01/23/18 12:24 [place] % (Auto) 5.8 % (4.7-12.5) 01/23/18 12:24 Eos % (Auto) 1.6 (0.7-5.8) 01/23/18 12:24 Baso % (Auto) 0.3 % (0.1-1.2) 01/23/18 12:24 Neut # (Auto) 3.28 K/mm3 (1.56-6.13) 01/23/18 12:24 Lymph # (Auto) 2.49 K/mm3 (1.18-3.74) 01/23/18 12:24 [place] # (Auto) 0.36 K/mm3 (0.24-0.36) 01/23/18 12:24 Eos # (Auto) 0.10 K/mm3 (0.04-0.36) 01/23/18 12:24 Baso # (Auto) 0.02 K/mm3 (0.01-0.08) 01/23/18 12:24 Urine Color Yellow (Yellow) 01/23/18 12:24 Urine Appearance Clear (Clear) 01/23/18 12:24 Urine pH 7.0 (5.0-8.0) 01/23/18 12:24 Ur Specific [place] 1.015 (1.005-1.030) 01/23/18 12:24 Urine Protein Negative (Negative) 01/23/18 12:24 Urine Glucose (UA) Negative (Negative) 01/23/18 12:24 Urine Ketones Negative (Negative) 01/23/18 12:24 Urine Occult Blood Negative (Negative) 01/23/18 12:24 Urine Nitrite Negative (Negative) 01/23/18 12:24 Urine Bilirubin Negative (Negative) 01/23/18 12:24 Urine Urobilinogen 0.2 (0.2-1.0) 01/23/18 12:24 Ur Leukocyte Esterase Negative (Negative) 01/23/18 12:24 Urine HCG, Qual Negative (NEGATIVE) 01/23/18 12:24 - Allergies Allergies/Adverse Reactions: Allergies Allergy/AdvReac Type Severity Reaction Status Date / Time No Known Allergies Allergy Verified 01/23/18 15:43 - Blood Blood Available: No Product(s) Available: None - Anesthesia Plan Pre-Op Medication Ordered: None - Acknowledgements Anesthesia Type Planned: General Anesthesia Pt an Appropriate Candidate for the Planned Anesthesia: Yes Alternatives and Risks of Anesthesia Discussed w Pt/Guardian: Yes Pt/Guardian Understands and Agrees with Anesthesia Plan: Yes PreAnesthesia Questionnaire - Past Health History Medical/Surgical History: Denies Medical/Surgical History HEENT History: Reports: Impaired Vision Cardiovascular History: Reports: None Respiratory History: Reports: None Gastrointestinal History: Reports: GERD, Other (See Below) Other Gastrointestinal History: abdominal pain Genitourinary History: Reports: STD AMMONIA DISTILLER History: Reports: Endometriosis, Other (See Below) 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/BYN History: infertility, HPV Musculoskeletal History: Reports: None Neurological History: Reports: None Psychiatric History: Reports: Other (See Below) Other Psychiatric History: fatigue Hematologic History: Reports: None Immunologic History: Reports: None Oncologic (Cancer) History: Reports: None Dermatologic History: Reports: Other (See Below) Other Dermatologic History: skin lesions, insect bites - Past Surgical History Head Surgeries/Procedures: Reports: None Other HEENT Surgeries/Procedures: wisdom teeth removed Cardiovascular Surgical History: Reports: None Respiratory Surgical History: Reports: None GI Surgical History: Reports: Appendectomy Female Surgical History: Reports: None Male Surgical History: Reports: None Endocrine Surgical History: Reports: None Neurological Surgical History: Reports: None Musculoskeletal Surgical History: Reports: None Oncologic Surgical History: Reports: None Dermatological Surgical History: Reports: Skin Biopsy - SUBSTANCE USE Smoking Status *Q: Current Every Day Smoker Tobacco Use Within Last Twelve Months: Cigarettes Second Hand Smoke Exposure: No Days Per Week of Alcohol Use: 1 Number of Drinks Per Day: 0 Total Drinks Per Week: 0 Recreational Drug Use History: No - HOME MEDS Home Medications: Home Meds Letrozole 2.5 mg PO ASDIRECTED 01/23/18 [History] - CURRENT (IN HOUSE) MEDS Current Meds: Current Medications Lactated Ringer's (Ringers, Lactated) 1,000 mls @ 125 mls/hr IV ASDIRECTED SABRA Stop: 01/24/18 23:00 Lidocaine/Sodium Bicarbonate (Buffered Lidocaine 1% In Ns 8.4%) 0.25 ml IDERM ONETIME PRN PRN Reason: Prior to IV Start Stop: 01/24/18 18:00 Sodium Chloride (Saline Flush) 10 ml FLUSH ASDIRECTED PRN PRN Reason: Keep Vein Open Stop: 01/24/18 18:00 Discontinued Medications Bupivacaine HCl (Marcaine 0.5%) Confirm Administered Dose 30 ml .ROUTE .STK-MED ONE Stop: 01/24/18 07:23 Dextrose/Water (Dextrose 50% In Water) Confirm Administered Dose 50 ml .ROUTE .STK-MED ONE Stop: 01/24/18 07:23 Fentanyl (Sublimaze) Confirm Administered Dose 250 mcg .ROUTE .STK-MED ONE Stop: 01/24/18 07:16 Lidocaine HCl (Xylocaine-Mpf 1%) Confirm Administered Dose 4 mls @ as directed .ROUTE .STK-MED ONE Stop: 01/24/18 07:16 Dextrose/Water (Dextrose 5% In Water) Confirm Administered Dose 100 mls @ as directed .ROUTE .STK-MED ONE Stop: 01/24/18 07:31 Methylene Blue (Provayblue) Confirm Administered Dose 50 mg .ROUTE .STK-MED ONE Stop: 01/24/18 07:23 Midazolam HCl (Versed 1 Mg/Ml) Confirm Administered Dose 2 mg .ROUTE .STK-MED ONE Stop: 01/24/18 07:26 Ondansetron HCl (Zofran) Confirm Administered Dose 4 mg .ROUTE .STK-MED ONE Stop: 01/24/18 07:15 Propofol (Diprivan 20 Ml) Confirm Administered Dose 200 mg .ROUTE .STK-MED ONE Stop: 01/24/18 07:16 Rocuronium [place] (Zemuron) Confirm Administered Dose 50 mg .ROUTE .STK-MED ONE Stop: 01/24/18 07:15
[2018-01-24] MEDS ORDERED: ceFAZolin 1 GM Vial ONE (07:54)
[2018-01-24] MEDS ORDERED: Lactated Ringers 1,000 ML ONE (08:10)
[2018-01-24] MEDS ORDERED: Dexamethasone 4 MG/ML 5 ML MDV ONE (08:14)
[2018-01-24] MEDS ORDERED: HYDROmorphone 0.5 MG/0.5 ML Syringe ONE ×2 (08:23)
[2018-01-24] MEDS ORDERED: Ondansetron 4 MG/2 ML SDV IVPUSH PRN (09:00)
[2018-01-24] MEDS ORDERED: Acetaminophen/oxyCODONE 325-5 MG Tab PO PRN (09:00)
[2018-01-24] MEDS ORDERED: Ketorolac 30 MG/ML SDV IVPUSH PRN (09:05)
[2018-01-24] MEDS ORDERED: fentaNYL 100 MCG/2 ML SDV IVPUSH PRN (09:05)
[2018-01-24] MEDS ORDERED: HYDROmorphone 0.5 MG/0.5 ML Syringe IVPUSH PRN (09:05)
--- NOTE | 2018-01-24 09:06 | PCM.POSTAN ---
POST ANESTHESIA ASSESSMENT - MENTAL STATUS Mental Status: Somnolent - VITAL SIGNS Pulse Rate: 76 SaO2: 93 Resp Rate: 6 Blood Pressure: 103/72 Temperature: 36.2 C - RESPIRATORY Respiratory Status: Respiratory Rate WNL, Airway Patent, O2 Saturation Stable, Supplemental Oxygen - CARDIOVASCULAR CV Status: Pulse Rate WNL, Blood Pressure Stable - GASTROINTESTINAL GI Status: No Symptoms - PAIN Pain Score: 0 - POST OP HYDRATION Hydration Status: Adequate & Stable - OBSERVATIONS Free Text/Narrative:: no anesthesia complications noted
--- NOTE | 2018-01-24 09:11 | PCM.OPNOTE ---
- General Post-Op/Procedure Note Date of Surgery/Procedure: 01/24/18 Operative Procedure(s): Laparoscopy, chromotubation, biopsy and cautery ablation of pelvic endometriosis Findings: She is status post appendectomy with larissa present at the appendix site. Liver edge right and left side were within normal limits. Gallbladder was inflamed. Pelvis showed active endometriosis in the anterior and posterior cul- de-sacs. The right ovary had at least 5 endometriosis spots present on the ovary. Left ovary was within normal limits. Posteriorly the endometriosis involved the posterior broad ligament and the uterosacral ligaments bilaterally. There is endometriosis on the right pelvic sidewall and right abdominal wall. The fallopian tubes bilaterally were patent as was illustrated was chromotubation with methylene blue solution. The ovaries appear functional with corpus luteum and corpus albicans present. Pre Op Diagnosis: 1. Primary infertility. 2. Dysmenorrhea Post-Op Diagnosis: Same with endometriosisstage II involving anterior posterior cul-de-sacs, right ovary and right pelvic sidewall Anesthesia Technique: General ET Tube Other Anesthesia Type: Marcaine 0.5%approximately 10 mL total Primary Surgeon: Rustam Rosario Anesthesia Provider: Quintin Estrada Pathology: Peritoneal biopsies from the pelvis. Fluid Replacement, Intraop: 1,850 Output, Urine Amount: 300 EBL in mLs: 5 Drain/Tube Comments:: Indwelling bladder catheter during surgery only. It was removed at the end of the case. Complications: None Condition: Good Free Text/Narrative:: Surgery duration: 34 minutes Procedure: The patient was taken to the operating room and placed in supine position on the operative table. She had sequential compression stockings in place for DVT prophylaxis and had been given 2 g of Ancef IV for infection prophylaxis. She was administered general endotracheal anesthesia. After administration of anesthesia the patient was placed in dorsal lithotomy position and prepped and draped in usual fashion. An indwelling bladder catheter was placed as was a 5.1 mm caliber 6 cm long uterine manipulator. It should be noted the uterus sounded to 7 cm and was noted to be posterior to mid position. Infraumbilical incision site and suprapubic site were then infiltrated with approximately 3-4 mL of Marcaine 0.5%. 5 mm incisions were made in these areas. Verres needle was placed in the infraumbilical incision site and pneumoperitoneum was established was in 3 L of CO2. The laparoscopic sleeve was then placed as was the scope. Under direct visualization the suprapubic site was developed with a 5 mm port. A 5 mm right abdominal port was also placed visualization. Pelvis was evaluated findings as above. Right posterior cul-de- sac and right pelvic sidewall were identified and some small mulberry colored lesions present these were biopsied and then cauterized with unipolar cautery. The right ovary was involved with endometriosis and at least 5 small sites largest being 4 mm in diameter. appendix was surgically absent. Some stellate scarring was noted in the area of the left uterosacral ligament and the right uterosacral ligament. The left ovary was unaffected. Patient was accomplished and there was good spill of dye from both the right and the left fallopian tube indicating patency bilaterally. At this time hemostasis was confirmed. After biopsy, cautery ablation and chromotubation was performed the pneumoperitoneum was reversed. The lower sleeve and the right abdominal port sleeve were removed under direct visualization. The 3 port site incisions were closed with single subcuticular interrupted suture of 3-0 Monocryl. The incisions were further approximated with Dermabond skin glue. The uterine manipulator and Rosas catheter removed. Patient was returned to the supine position and awakened from general endotracheal anesthesia. She left the operating room in good condition.
[2018-01-24 11:37] VITALS: BP 124/88
== END 2018-01-24 11:50 | disposition home or self-care (01) ==
LOC: JD.SDS 07:03
PROVIDERS: ATTEND Obstetrics & Gynecology
DX: N80.3 Endometriosis of pelvic peritoneum (principal); N80.1 Endometriosis of ovary; F17.210 Nicotine dependence, cigarettes, uncomplicated; K21.9 Gastro-esophageal reflux disease without esophagitis; Z79.899 Other long term (current) drug therapy
CPT/HCPCS: 36415; 58350; 58662; 81003; 81025; 85025; A9270; J0690; J1100; J1170; J1885; J2001; J2250; J2405; J3010; J7120; 00840; J2704; J7060

== ENCOUNTER 2019-11-29 10:59 | Inpatient (IN) | payer OTHER ==
[2019-11-29] MEDS: Calcium Carbonate 500 MG Tab.Chew PO PRN ×2 (20:53→23:50)
--- NOTE | 2019-11-29 21:04 | PCM.LDHP ---
L&D History of Present Illness - General Date of Service: 11/29/19 Admit Problem/Dx: Admission Diagnosis/Problem Admission Diagnosis/Problem 11/29/19 20:52 Sue is a 28-year-old 1 para 0 white female was admitted on the evening of 11/29/2019 at 89-3/7 weeks gestational age with an CAROLINE of 12/03/2019 for elective induction of labor. Source of Information: Patient History Limitations: Reports: No Limitations - History of Present Illness Introduction:: Sue is a 28-year-old 1 para 0 white female was admitted on the evening of 11/29/2019 at 89-3/7 weeks gestational age with an CAROLINE of 12/03/2019 for elective induction of labor.The procedure and process of induction of labor , its risks, benefits, alternatives of care including allowing for natural onset of labor are all discussed in detail with patient. She appears to understand and wishes to proceed. 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 Her CAROLINE is 12/03/2019 as based upon an early ultrasound done at 6-1/7 weeks gestational age on 04/10/2019. She is had 2 other ultrasounds during the course the on 05/16/2019 and 07/25/2019 which are supportive of her initial ultrasound. Her course has been relatively unremarkable. She reported every 30 day, regular cycles. Last menstrual period was somewhat unknown. Her LMP occurred without the use of control pills. Her first visit after her initial ultrasound confirming was on 05/16/2019 at 11-2/7 weeks. She was seen on a regular basis during the course the . She was a centering patient. Her weight gain was from 172 204 pounds for a 34 pound weight gain. Her vital signs were essentially normal throughout the and her fundal height growth was appropriate. She is group B strep negative. Patient declined flu vaccination. Declined genetic evaluation. She has a history of polycystic ovarian syndrome and endometriosis. She plans to breast-feed. She is interested in analgesia during the course of her labor and is open to epidural. She's had some hemorrhoidal problems during the course of and has used hydrocortisone rectal cream. Patient had her T dap given on 09/12/2019. She is rubella immune. Laboratory testing in shows blood to be B+ with a negative and by screen. Hemoglobin is 12.0 g/dL. Her platelets are 243,000. She is rubella immune. RPR is nonreactive. Urinalysis was unremarkable. Hepatitis B surface antigen and HIV assays were both negative. Her chlamydia and gonorrhea tests were both negative. Second trimester laboratory testing showed hemoglobin 10.9 g /dL. She is advised to get on ferrous sulfate at that time. Her platelets were 202,000. Her 1 hour GTT was normal. She had RPR on 09/03/2019 which was nonreactive. Group B strep screen was negative. Allergies: Seasonal allergies only. No known drug allergies. Medications: 1. Hydrocortisone 2.5% rectal cream applied 3 times a day to affected area when necessary 2. vitamins daily 3. Miralax oral powder when necessary 4. Colace when necessary Past medical history: 1. Polycystic ovarian syndrome 2. 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 3. Irritable bowel syndrome with primary concern constipation 4. Umbilical hernia 5. Hiatal hernia Past surgical history: 1. Cervical laser wart removal 2007 2. For precancerous skin lesions removed on chest and abdomen. Family history: No anesthesia, bleeding, blood clotting problems noted in the family. Social history: Patient is single. 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 She does not use any significant most alcohol, drugs or tobacco. Her significant other's Pradeep Ku. Review of systems: In general patient has no complaints. He has been active. Patient has not had any significant contractions. Skin: Negative Lungs: No infectious symptoms or shortness of breath Cardiovascular: No chest pain or exercise intolerance Breasts: Changes associated with .. GI: Negative : Increase in fundal height related to term . Musculoskeletal: Negative Neurological: Negative In general the patient is well-developed, well-nourished, pleasant female of stated age in no acute distress. At her last evaluation in clinic on 11/26/2019 patient's blood pressure was 126/ 84 after initial evaluations 130/90. Her weight is 204.2 pounds with pregravid weight 170 pounds. heart rate was 131 at that time. Her height is 5 feet 9. Her prepregnancy body mass index was 23.3. Skin is warm dry without lesions. HEENT, neck and back within normal limits. Lungs are clear with good breath sounds in all lung leon. Cardiovascular exam shows regular and rhythm without murmurs. Breast evaluations deferred. Patient plans to breast-feed. Abdomen is gravid with last fundal height clinic at 40 cm with baby in vertex presentation by Leon maneuvers.. Genital usual exam on 11/19/2019 showed cervix to be 3 cm, 90% effaced, soft, mid position, -3 station. Extremities and neurological exam are grossly within normal limits. - Related Data Allergies/Adverse Reactions: Allergies Allergy/AdvReac Type Severity Reaction Status Date / Time No Known Allergies Allergy Verified 11/29/19 20:39 Home Medications: Home Meds Letrozole 2.5 mg PO ASDIRECTED 01/23/18 [History] Acetaminophen/oxyCODONE [Percocet 325-5 MG] 2 tab PO Q4H PRN #20 tablet [Rx] Ibuprofen 600 mg PO Q4H PRN #30 tablet 01/24/18 [Rx] Multivitamin [Multi-Vitamin Daily] 1 tab PO DAILY 01/24/18 [History] Past Medical History - Past Health History Medical/Surgical History: Denies Medical/Surgical History HEENT History: Reports: Impaired Vision Cardiovascular History: Reports: None Respiratory History: Reports: None Gastrointestinal History: Reports: GERD, Other (See Below) Other Gastrointestinal History: abdominal pain Genitourinary History: Reports: STD STEEL FITTER 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: Reports: Endometriosis, Other (See Below) Other OB/BYN History: infertility, HPV Musculoskeletal History: Reports: None Neurological History: Reports: None Psychiatric History: Reports: Other (See Below) Other Psychiatric History: fatigue Hematologic History: Reports: None Immunologic History: Reports: None Oncologic (Cancer) History: Reports: None Dermatologic History: Reports: Other (See Below) Other Dermatologic History: skin lesions, insect bites - Past Surgical History Head Surgeries/Procedures: Reports: None Other HEENT Surgeries/Procedures: wisdom teeth removed Cardiovascular Surgical History: Reports: None Respiratory Surgical History: Reports: None GI Surgical History: Reports: Appendectomy Female Surgical History: Reports: None Male Surgical History: Reports: None Endocrine Surgical History: Reports: None Neurological Surgical History: Reports: None Musculoskeletal Surgical History: Reports: None Oncologic Surgical History: Reports: None Dermatological Surgical History: Reports: Skin Biopsy Social & Family History - Caffeine Use Caffeine Use: Reports: Coffee - Living Situation & Occupation Living situation: Reports: Single, with Significant Other (Boyfriend) 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 39-3/7 weeks intrauterine , admitted for elective induction of labor 2. Group B strep screen is negative 3. History of hemorrhoids treated with hydrocortisone rectal cream. 4. Patient plans to breast-feed 5. Patient is interested in analgesia in labor including IV analgesia or epidural analgesia. 6. Patient received her diphtheria/pertussis/tetanus immunization on 09/12/2019. She declined her flu shot. She declined genetic evaluation. 7. Patient has a history of endometriosis and polycystic ovarian syndrome. Plan: 1. Elective induction of labor with artificial rupture membranes induction with Pitocin augmentation as indicated. 2. Intermittent monitoring 3. Epidural or Nubain IV when necessary for pain 4. Support rest feeding decision 5. CBC and RPR upon admission 6. IV access 7. Regular diet during labor
[2019-11-29] MEDS ORDERED: fentaNYL 100 MCG/2 ML SDV EPIDUR PRN (21:30)
[2019-11-29] MEDS ORDERED: ePHEDrine 50 MG/ML SDV IVPUSH PRN (21:30)
[2019-11-29] MEDS ORDERED: diphenhydrAMINE 50 MG/ML SDV IVPUSH PRN (21:30)
[2019-11-29] MEDS ORDERED: Bupivacaine/fentaNYL/NS 100 ML Bag EPIDUR PRN (21:30)
[2019-11-29] MEDS ORDERED: Ondansetron 4 MG/2 ML SDV IVPUSH PRN (22:32)
[2019-11-29] MEDS ORDERED: Sodium Chloride 0.9% 10 ML Syringe FLUSH PRN (22:32)
--- NOTE | 2019-11-29 22:38 | PCM.PREANE ---
Preanesthetic Assessment - Procedure Proposed Procedure: mona - Anesthesia/Transfusion/Family Hx Anesthesia History: Prior Anesthesia Reaction (nausea) Type of Anesthesia Reaction: Excessive Nausea/Vomiting Family History of Anesthesia Reaction: No Transfusion History: No Prior Transfusion(s) - Review of Systems General: No Symptoms Pulmonary: No Symptoms, Shortness of Breath () Cardiovascular: No Symptoms Gastrointestinal: Abdominal Pain (contractions), Nausea, Other (heartburn now) Neurological: No Symptoms Other: Reports: None - Physical Assessment Vital Signs: 136/92 90 97% 16 99.0 Height: 5 ft 9 in Weight: 93.44 kg ASA Class: 2 Mental Status: Alert & Oriented x3 Airway Class: Mallampati = 1 Dentition: Reports: Normal Dentition Thyro-Mental Finger Breadths: 3 Mouth Opening Finger Breadths: 3 ROM/Head Extension: Full Lungs: Clear to Auscultation, Normal Respiratory Effort Cardiovascular: Regular Rate, Regular Rhythm, No Murmurs - Allergies Allergies/Adverse Reactions: Allergies Allergy/AdvReac Type Severity Reaction Status Date / Time No Known Allergies Allergy Verified 11/29/19 20:39 - Blood Blood Available: No - Acknowledgements Anesthesia Type Planned: Epidural Pt an Appropriate Candidate for the Planned Anesthesia: Yes Alternatives and Risks of Anesthesia Discussed w Pt/Guardian: Yes Pt/Guardian Understands and Agrees with Anesthesia Plan: Yes PreAnesthesia Questionnaire - Past Health History Medical/Surgical History: Denies Medical/Surgical History HEENT History: Reports: Impaired Vision Cardiovascular History: Reports: None Respiratory History: Reports: None Gastrointestinal History: Reports: GERD, Other (See Below) Other Gastrointestinal History: abdominal pain Genitourinary History: Reports: STD 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: Endometriosis, Other (See Below) : 1 Para: 0 Other OB/BYN History: infertility, HPV Musculoskeletal History: Reports: None Neurological History: Reports: None Psychiatric History: Reports: Other (See Below) Other Psychiatric History: fatigue Hematologic History: Reports: None Immunologic History: Reports: None Oncologic (Cancer) History: Reports: None Dermatologic History: Reports: Other (See Below) Other Dermatologic History: skin lesions, insect bites - Past Surgical History Head Surgeries/Procedures: Reports: None HEENT Surgical History: Reports: Oral Surgery Other HEENT Surgeries/Procedures: wisdom teeth removed Cardiovascular Surgical History: Reports: None Respiratory Surgical History: Reports: None GI Surgical History: Reports: Appendectomy Female Surgical History: Reports: None, Other (See Below) (laparoscopy) Male Surgical History: Reports: None Endocrine Surgical History: Reports: None Neurological Surgical History: Reports: None Musculoskeletal Surgical History: Reports: None Oncologic Surgical History: Reports: None Dermatological Surgical History: Reports: Skin Biopsy - SUBSTANCE USE Smoking Status *Q: Former Smoker (quit may 2019) Tobacco Use Within Last Twelve Months: Cigarettes Second Hand Smoke Exposure: Yes Days Per Week of Alcohol Use: 0 Recreational Drug Use History: No - HOME MEDS Home Medications: Home Meds Letrozole 2.5 mg PO ASDIRECTED 01/23/18 [History] Acetaminophen/oxyCODONE [Percocet 325-5 MG] 2 tab PO Q4H PRN #20 tablet [Rx] Ibuprofen 600 mg PO Q4H PRN #30 tablet 01/24/18 [Rx] Multivitamin [Multi-Vitamin Daily] 1 tab PO DAILY 01/24/18 [History] - CURRENT (IN HOUSE) MEDS Current Meds: Current Medications Calcium Carbonate/Glycine (Tums) 1,000 mg PO Q2HR PRN PRN Reason: Indigestion Last Admin: 11/29/19 20:53 Dose: 1,000 mg Diphenhydramine HCl (Benadryl) 25 mg IVPUSH Q6H PRN PRN Reason: pruritis Ephedrine Sulfate (Ephedrine Sulfate) 5 mg IVPUSH ASDIRECTED PRN PRN Reason: Hypotension Fentanyl (Sublimaze) 100 mcg EPIDUR Q3H PRN PRN Reason: Pain Fentanyl/Bupivacaine HCl (Fentanyl/Bupivacaine/Ns 2 Mcg-0.125% 100 Ml) 100 ml EPIDUR ASDIRECTED PRN PRN Reason: Pain
[2019-11-29] MEDS ORDERED: Oxytocin/Lactated Ringers 10 UNIT/1,000 ML BAG IV SCH ×2 (22:45)
[2019-11-29] MEDS: Lactated Ringers 1,000 ML IV SCH (23:43)
[2019-11-30] MEDS: Lactated Ringers 1,000 ML IV SCH ×3 (03:25→05:53)
[2019-11-30] MEDS: Calcium Carbonate 500 MG Tab.Chew PO PRN ×3 (03:36→08:50)
[2019-11-30] MEDS ORDERED: Bupivacaine 0.25% 10 ML SDV ONE (06:00)
[2019-11-30] MEDS ORDERED: ePHEDrine Sulfate/0.9% NaCl/Pf 25 MG/5 ML SYRINGE IV ONE (06:00)
--- NOTE | 2019-11-30 11:42 | PCM.SN ---
- Free Text/Narrative Note: Sue is a 28-year-old 1 para 0 white female patient who is in the [facility] program and who was admitted on the evening of 11/29/2019 at 89-3/7 weeks gestational age with an CAROLINE of 12/03/2019 for elective induction of labor.Patient underwent artificial rupture membranes and then was later augmented with Pitocin. Intrauterine pressure catheter was placed to more closely monitor contraction pattern. Patient progressed to complete cervical dilation by approximately 1000 hrs. on 11/30/2019. She had an epidural placed for labor analgesia. At 1059 hrs. on 11/30/2019 the patient delivered a viable, earl, male infant with Apgars of 8 and 9, a weight of 3350 g (7 lbs. 6 oz.) , a length of 19.75 inches, in a direct occiput anterior position. She had a second-degree perineal laceration. The baby was placed on mom's abdomen, nose and mouth were bulb suctioned, the baby was dried and stimulated. The Pitocin was increased to 500 mL per hour per protocol to increase the uterine tone and decrease likelihood of bleeding. The baby's left arm/hand, it should be noted, delivered along side the head and shoulders representing a complex presentation initially but reduced as the arm slipped back down during the course of the delivery of the shoulders. The umbilical cord was allowed to pulsate times approximate 2 minutes. It was then clamped 2 and cut by the baby's father Pradeep. There were 3 vessels in the umbilical cord. Cord blood was obtained. The placenta delivered at 1102 hrs. It appeared intact, complete and was discarded per patient desire. The second-degree perineal laceration was repaired with 3-0 Monocryl suture in a routine fashion. 2 other superficial abrasions were noted on the medial aspect of the labia minora. These were not bleeding and showed no evidence of anatomical distortion. Estimated blood loss was 100 mL. Patient plans to breast-feed. Condition: Good
[2019-11-30] MEDS ORDERED: Acetaminophen 325 MG Tab PO PRN (12:02)
[2019-11-30] MEDS ORDERED: Witch Hazel Medicated Pads 40/Jar TOP PRN (12:02)
[2019-11-30] MEDS ORDERED: Benzocaine/Menthol 20%-0.5% Spray 56 GM Canister TOP PRN (13:09)
[2019-11-30] MEDS: Ibuprofen 600 MG Tab PO PRN ×2 (15:33→20:58)
[2019-12-01] MEDS: Ibuprofen 600 MG Tab PO PRN ×3 (00:58→19:40)
--- NOTE | 2019-12-01 07:15 | PCM.PNPP ---
- General Info Date of Service: 12/01/19 Functional Status: Reports: Pain Controlled, Tolerating Diet, Ambulating, Urinating - Review of Systems General: Reports: No Symptoms Pulmonary: Reports: No Symptoms Cardiovascular: Reports: No Symptoms Gastrointestinal: Reports: No Symptoms Genitourinary: Reports: No Symptoms Musculoskeletal: Reports: Back Pain (at site of epidural ) - Patient Data Vital Signs - Most Recent: Last Vital Signs Temp 36.9 C 11/30/19 20:55 Pulse 95 11/30/19 20:55 Resp 15 11/30/19 20:55 BP 109/56 L 11/30/19 20:55 Pulse Ox 96 11/30/19 20:55 Weight - Most Recent: 93.44 kg I&O - Last 24 Hours: Intake & Output 11/30/19 12/01/19 12/01/19 22:59 06:59 14:59 Intake Total 240 Balance 240 Lab Results - Last 24 Hours: Laboratory Results - last 24 hr 11/29/19 Range/Units 22:50 RPR Non-reactive (NONREACTIVE) Med Orders - Current: Current Medications Acetaminophen (Tylenol) 650 mg PO Q4H PRN PRN Reason: mild pain or fever Benzocaine/Menthol (Dermoplast Pain Relief [place]) 0 gm TOP ASDIRECTED PRN PRN Reason: Pain Last Admin: 11/30/19 13:16 Dose: 1 can Docusate Sodium (Colace) 100 mg PO BID PRN PRN Reason: Constipation Ibuprofen (Motrin) 600 mg PO Q4H PRN PRN Reason: Mild pain or fever Last Admin: 12/01/19 00:58 Dose: 600 mg Prenat Multivit/[place]/Iron/Folic Ac ( Plus Iron) 1 each PO DAILY [facility] [place] Aburto (Tucks) 1 pad TOP ASDIRECTED PRN PRN Reason: Perineal Comfort Measure Last Admin: 11/30/19 13:17 Dose: 1 tub Discontinued Medications Calcium Carbonate/Glycine (Tums) 1,000 mg PO Q2HR PRN PRN Reason: Indigestion Last Admin: 11/30/19 08:50 Dose: 1,000 mg Diphenhydramine HCl (Benadryl) 25 mg IVPUSH Q6H PRN PRN Reason: pruritis Ephedrine Sulfate (Ephedrine Sulfate) 5 mg IVPUSH ASDIRECTED PRN PRN Reason: Hypotension Fentanyl (Sublimaze) 100 mcg EPIDUR Q3H PRN PRN Reason: Pain Last Admin: 11/30/19 02:21 Dose: 100 mcg Fentanyl/Bupivacaine HCl (Fentanyl/Bupivacaine/Ns 2 Mcg-0.125% 100 Ml) 100 ml EPIDUR ASDIRECTED PRN PRN Reason: Pain Last Admin: 11/30/19 02:22 Dose: 100 ml Lactated Ringer's (Ringers, Lactated) 1,000 mls @ 100 mls/hr IV ASDIRECTED SABRA Last Admin: 11/30/19 05:53 Dose: 100 mls/hr Oxytocin/Lactated Ringer's (Pitocin In Lr 10 Units/1,000 Ml) 10 unit in 1,000 mls @ 12 mls/hr IV TITRATE SABRA; Protocol Last Titration: 11/30/19 08:19 Dose: 14 munits/min, 84 mls/hr Oxytocin/Lactated Ringer's (Pitocin In Lr 10 Units/1,000 Ml) 10 unit in 1,000 mls @ 500 mls/hr IV .CONTINUOUS SABRA Last Admin: 11/30/19 11:22 Dose: 500 mls/hr Ondansetron HCl (Zofran) 4 mg IVPUSH Q4H PRN PRN Reason: Nausea/Vomiting Last Admin: 11/30/19 10:04 Dose: 4 mg Sodium Chloride (Saline Flush) 10 ml FLUSH ASDIRECTED PRN PRN Reason: Keep Vein Open - Infant Interaction Disposition, : in Room with Family Infant Interaction: Holding Feeding: Attempted ; Nursed Fair/Poor Support Person: - Recovery Exam Fundal Tone: Firm Fundal Level: 1 Fingerbreadths Below Umbilicus Fundal Placement: Midline Lochia Amount: Small Lochia Color: Rubra/Red Perineum Description: Other (see below) Other Perinuem Description: 2nd degree with repair Episiotomy/Laceration: None Bladder Status: Voiding Urinary Elimination: Voided - Exam General: Alert, Oriented, Cooperative GI/Abdominal Exam: Soft, Non-Tender Extremities: Normal Inspection Skin: Warm, Dry, Intact - Problem List & Annotations (1) Vaginal delivery SNOMED Code(s): 903780704 Code(s): O80 - ENCOUNTER FOR FULL-TERM UNCOMPLICATED DELIVERY Status: Acute Current Visit: Yes - Problem List Review Problem List Initiated/Reviewed/Updated: Yes - Assessment Assessment:: PPD#1 - Plan Plan:: * Routine cares * Breast feeding * Discharge home today vs tomorrow pending patient preference
--- NOTE | 2019-12-01 08:08 | PCM.DCSUM1 ---
Discharge Summary - Discharge Data Discharge Date: 12/01/19 Discharge Disposition: Home, Self-Care 01 Condition: Good - Referral to Home Health Primary Care Physician: Rustam Rosario MD - Discharge Diagnosis/Problem(s) (1) Vaginal delivery SNOMED Code(s): 436150017 ICD Code: O80 - ENCOUNTER FOR FULL-TERM UNCOMPLICATED DELIVERY Status: Acute Current Visit: Yes - Patient Summary/Data Complications: None Consults: None Recommended Follow-up Testing/Procedures: Follow up in 2-3 weeks for check Hospital Course: 28 y/o admitted at 39 3/7 wks for elective IOL . This was done with pitocin and AROM. Progressed well to complete dilation and underwent an uncomplicated . See delivery note. did well. Was discharged home on PPD#2 - Patient Instructions Diet: Regular Diet as Tolerated Activity: As Tolerated Activity, Other: Pelvic Rest for 6 weeks Driving: May Drive Today Showering/Bathing: May Shower Showering/Bathing, Other: May bathe Notify Provider of: Fever, Increased Pain, Swelling and Redness, Drainage, Nausea and/or Vomiting - Discharge Plan *PRESCRIPTION DRUG MONITORING PROGRAM REVIEWED*: No *COPY OF PRESCRIPTION DRUG MONITORING REPORT IN PATIENT EVETTE: No Home Medications: Home Meds Multivitamin [Multi-Vitamin Daily] 1 tab PO DAILY 01/24/18 [History] Docusate Sodium [Colace] 100 mg PO DAILY PRN 11/29/19 [History] polyethylene glycoL 3350 [MiraLAX] 17 gm PO DAILY PRN 11/29/19 [History] Ibuprofen [Motrin] 600 mg PO Q4H PRN tablet 11/30/19 [Rx] Referrals: Rustam Rosario MD [Primary Care Provider] - (2-3 weeks for check ) - Discharge Summary/Plan Comment DC Time >30 min.: No - Patient Data Vitals - Most Recent: Last Vital Signs Temp 36.9 C 11/30/19 20:55 Pulse 95 11/30/19 20:55 Resp 15 11/30/19 20:55 BP 109/56 L 11/30/19 20:55 Pulse Ox 96 11/30/19 20:55 Weight - Most Recent: 93.44 kg I&O - Last 24 hours: Intake & Output 03/27/20 03/28/20 03/28/20 22:59 06:59 14:59 Intake Total 240 Balance 240 Lab Results - Last 24 hrs: Laboratory Results - last 24 hr 11/29/19 Range/Units 22:50 RPR Non-reactive (NONREACTIVE) Med Orders - Current: Current Medications Acetaminophen (Tylenol) 650 mg PO Q4H PRN PRN Reason: mild pain or fever Benzocaine/Menthol (Dermoplast Pain Relief [place]) 0 gm TOP ASDIRECTED PRN PRN Reason: Pain Last Admin: 11/30/19 13:16 Dose: 1 can Docusate Sodium (Colace) 100 mg PO BID PRN PRN Reason: Constipation Ibuprofen (Motrin) 600 mg PO Q4H PRN PRN Reason: Mild pain or fever Last Admin: 12/01/19 00:58 Dose: 600 mg Prenat Multivit/[place]/Iron/Folic Ac ( Plus Iron) 1 each PO DAILY SABRA [place] Aburto (Tucks) 1 pad TOP ASDIRECTED PRN PRN Reason: Perineal Comfort Measure Last Admin: 11/30/19 13:17 Dose: 1 tub Discontinued Medications Calcium Carbonate/Glycine (Tums) 1,000 mg PO Q2HR PRN PRN Reason: Indigestion Last Admin: 11/30/19 08:50 Dose: 1,000 mg Diphenhydramine HCl (Benadryl) 25 mg IVPUSH Q6H PRN PRN Reason: pruritis Ephedrine Sulfate (Ephedrine Sulfate) 5 mg IVPUSH ASDIRECTED PRN PRN Reason: Hypotension Fentanyl (Sublimaze) 100 mcg EPIDUR Q3H PRN PRN Reason: Pain Last Admin: 11/30/19 02:21 Dose: 100 mcg Fentanyl/Bupivacaine HCl (Fentanyl/Bupivacaine/Ns 2 Mcg-0.125% 100 Ml) 100 ml EPIDUR ASDIRECTED PRN PRN Reason: Pain Last Admin: 11/30/19 02:22 Dose: 100 ml Lactated Ringer's (Ringers, Lactated) 1,000 mls @ 100 mls/hr IV ASDIRECTED SABRA Last Admin: 11/30/19 05:53 Dose: 100 mls/hr Oxytocin/Lactated Ringer's (Pitocin In Lr 10 Units/1,000 Ml) 10 unit in 1,000 mls @ 12 mls/hr IV TITRATE SABRA; Protocol Last Titration: 11/30/19 08:19 Dose: 14 munits/min, 84 mls/hr Oxytocin/Lactated Ringer's (Pitocin In Lr 10 Units/1,000 Ml) 10 unit in 1,000 mls @ 500 mls/hr IV .CONTINUOUS SABRA Last Admin: 11/30/19 11:22 Dose: 500 mls/hr Ondansetron HCl (Zofran) 4 mg IVPUSH Q4H PRN PRN Reason: Nausea/Vomiting Last Admin: 11/30/19 10:04 Dose: 4 mg Sodium Chloride (Saline Flush) 10 ml FLUSH ASDIRECTED PRN PRN Reason: Keep Vein Open
[2019-12-01] MEDS ORDERED: Prenatal Multivitamin with Calcium/Folic Acid/Iron Tab PO SCH (09:00)
--- NOTE | 2019-12-01 09:59 | PCM48HPAN ---
Post Anesthesia Note - EVALUATION WITHIN 48HRS OF ANESTHETIC Vital Signs in Normal Range: Yes Patient Participated in Evaluation: Yes Respiratory Function Stable: Yes Airway Patent: Yes Cardiovascular Function Stable: Yes Hydration Status Stable: Yes Pain Control Satisfactory: Yes Nausea and Vomiting Control Satisfactory: Yes Mental Status Recovered: Yes Vital Signs: Last Vital Signs Temp 97.9 F 12/01/19 08:49 Pulse 83 12/01/19 08:49 Resp 14 12/01/19 08:49 BP 110/90 12/01/19 08:49 Pulse Ox 94 L 12/01/19 08:49 - COMMENTS/OBSERVATIONS Free Text/Narrative:: Patient is on her day 1. Stated understanding about possible backaches following epidural anesthesia. Mentions having some minor back soreness at this time. Explanation given about importance of avoiding back straining. Denies any headache or lightheadedness at this time. Comfortable now. Ambulating, no difficulty urinating.
[2019-12-01] MEDS: Docusate Sodium 100 MG Cap PO PRN (14:13)
[2019-12-02] MEDS: Ibuprofen 600 MG Tab PO PRN (03:03)
[2019-12-02] MEDS: Docusate Sodium 100 MG Cap PO PRN (03:03)
--- NOTE | 2019-12-02 07:25 | PCM.PNPP ---
- General Info Date of Service: 12/02/19 Functional Status: Reports: Pain Controlled, Tolerating Diet, Ambulating, Urinating - Review of Systems General: Reports: No Symptoms Pulmonary: Reports: No Symptoms Cardiovascular: Reports: No Symptoms Gastrointestinal: Reports: No Symptoms Genitourinary: Reports: Other (some perineal pain) Musculoskeletal: Reports: No Symptoms Neurological: Reports: No Symptoms - Patient Data Vital Signs - Most Recent: Last Vital Signs Temp 36.6 C 12/02/19 03:08 Pulse 81 12/02/19 03:08 Resp 15 12/02/19 03:08 BP 122/70 12/02/19 03:08 Pulse Ox 97 12/02/19 03:08 Weight - Most Recent: 93.44 kg Med Orders - Current: Current Medications Acetaminophen (Tylenol) 650 mg PO Q4H PRN PRN Reason: mild pain or fever Benzocaine/Menthol (Dermoplast Pain Relief [place]) 0 gm TOP ASDIRECTED PRN PRN Reason: Pain Last Admin: 11/30/19 13:16 Dose: 1 can Docusate Sodium (Colace) 100 mg PO BID PRN PRN Reason: Constipation Last Admin: 12/02/19 03:03 Dose: 100 mg Ibuprofen (Motrin) 600 mg PO Q4H PRN PRN Reason: Mild pain or fever Last Admin: 12/02/19 03:03 Dose: 600 mg Prenat Multivit/Cedar/Iron/Folic Ac ( Plus Iron) 1 each PO DAILY SABRA Last Admin: 12/01/19 14:19 Dose: Not Given Witch Criselda (Tucks) 1 pad TOP ASDIRECTED PRN PRN Reason: Perineal Comfort Measure Last Admin: 11/30/19 13:17 Dose: 1 tub Discontinued Medications Bupivacaine HCl (Sensorcaine-Mpf 0.25%) 10 ml .ROUTE .STK-MED ONE Stop: 11/30/19 06:01 Calcium Carbonate/Glycine (Tums) 1,000 mg PO Q2HR PRN PRN Reason: Indigestion Last Admin: 11/30/19 08:50 Dose: 1,000 mg Diphenhydramine HCl (Benadryl) 25 mg IVPUSH Q6H PRN PRN Reason: pruritis Ephedrine Sulfate (Ephedrine Sulfate) 5 mg IVPUSH ASDIRECTED PRN PRN Reason: Hypotension Ephedrine Sulfate (Ephedrine 25 Mg/5 Ml Syringe) 25 mg IV .[employer]-MED ONE Stop: 11/30/19 06:01 Fentanyl (Sublimaze) 100 mcg EPIDUR Q3H PRN PRN Reason: Pain Last Admin: 11/30/19 02:21 Dose: 100 mcg Fentanyl/Bupivacaine HCl (Fentanyl/Bupivacaine/Ns 2 Mcg-0.125% 100 Ml) 100 ml EPIDUR ASDIRECTED PRN PRN Reason: Pain Last Admin: 11/30/19 02:22 Dose: 100 ml Lactated Ringer's (Ringers, Lactated) 1,000 mls @ 100 mls/hr IV ASDIRECTED SABRA Last Admin: 11/30/19 05:53 Dose: 100 mls/hr Oxytocin/Lactated Ringer's (Pitocin In Lr 10 Units/1,000 Ml) 10 unit in 1,000 mls @ 12 mls/hr IV TITRATE SABRA; Protocol Last Titration: 11/30/19 08:19 Dose: 14 munits/min, 84 mls/hr Oxytocin/Lactated Ringer's (Pitocin In Lr 10 Units/1,000 Ml) 10 unit in 1,000 mls @ 500 mls/hr IV .CONTINUOUS SABRA Last Admin: 11/30/19 11:22 Dose: 500 mls/hr Ondansetron HCl (Zofran) 4 mg IVPUSH Q4H PRN PRN Reason: Nausea/Vomiting Last Admin: 11/30/19 10:04 Dose: 4 mg Sodium Chloride (Saline Flush) 10 ml FLUSH ASDIRECTED PRN PRN Reason: Keep Vein Open - Infant Interaction Disposition, : in Room with Family Interaction: Holding Infant Feeding: Attempted ; Nursed Fair/Poor Support Person: - Recovery Exam Fundal Tone: Firm Fundal Level: 2 Fingerbreadths Below Umbilicus Fundal Placement: Midline Lochia Amount: Scant, Small Lochia Color: Rubra/Red Perineum Description: Other (see below) Other Perinuem Description: 2nd degree with repair Episiotomy/Laceration: None Bladder Status: Voiding Urinary Elimination: Voided - Exam General: Alert, Oriented, Cooperative - Problem List & Annotations (1) Vaginal delivery SNOMED Code(s): 428534685 Code(s): O80 - ENCOUNTER FOR FULL-TERM UNCOMPLICATED DELIVERY Status: Acute Current Visit: Yes - Problem List Review Problem List Initiated/Reviewed/Updated: Yes - My Orders Last 24 Hours: My Active Orders 12/01/19 08:08 Ready for Discharge [RC] PER UNIT ROUTINE - Assessment Assessment:: PPD#2 - Plan Plan:: * Routine cares * Breast feeding * Discharge home today
[2019-12-02 08:31] VITALS: BP 129/85; PULSE 87
== END 2019-12-02 09:20 | disposition home or self-care (01) | DRG 807 ==
LOC: JD.OB 10:59 → OBSVTOIN 11-30 10:59 → JD.OB 11-30 11:00
PROVIDERS: ADMIT Obstetrics & Gynecology; ATTEND Obstetrics & Gynecology
PROC: 10E0XZZ Delivery of Products of Conception, External Approach (ICD-10-PCS; principal; 2019-11-30)
PROC: 0KQM0ZZ Repair Perineum Muscle, Open Approach (ICD-10-PCS; 2019-11-30)
PROC: 10907ZC Drainage of Amniotic Fluid, Therapeutic from Products of Conception, Via Natural or Artificial Opening (ICD-10-PCS; 2019-11-30)
PROC: 3E0R3BZ Introduction of Anesthetic Agent into Spinal Canal, Percutaneous Approach (ICD-10-PCS; 2019-11-30)
DX: O70.1 Second degree perineal laceration during delivery (principal); Z37.0 Single live birth; Z3A.39 39 weeks gestation of pregnancy
CPT/HCPCS: 36415; 51702; 59025; 59409; 85025; 86592; A9270-GY; J0171; J2405; J2590; J3010; J3490; J7120

== ENCOUNTER 2021-11-07 11:03 | Inpatient (IN) | payer BC ==
[2021-11-07] MEDS ORDERED: Famotidine 20 MG Tab PO PRN (11:38)
[2021-11-07] MEDS ORDERED: Ampicillin 2 GM in Sodium Chloride 0.9% 100 ML IV ONE (11:38)
[2021-11-07] MEDS ORDERED: Nalbuphine 10 MG/1 ML Vial IVPUSH PRN (11:38)
[2021-11-07] MEDS ORDERED: Oxytocin/Lactated Ringers 10 UNIT/1,000 ML BAG IV SCH ×2 (11:45)
[2021-11-07] MEDS: Lactated Ringers 1,000 ML IV SCH ×2 (12:12→13:10)
[2021-11-07] MEDS ORDERED: fentaNYL 100 MCG/2 ML SDV EPIDUR PRN (12:31)
[2021-11-07] MEDS ORDERED: diphenhydrAMINE 50 MG/ML SDV IVPUSH PRN (12:31)
[2021-11-07] MEDS ORDERED: ePHEDrine 50 MG/ML SDV IVPUSH PRN (12:31)
[2021-11-07] MEDS ORDERED: Bupivacaine/fentaNYL/NS 100 ML Bag EPIDUR PRN (12:31)
[2021-11-07] MEDS ORDERED: Lidocaine 2% with EPINEPHrine 1:200,000 20 ML SDV ONE (13:57)
[2021-11-07] MEDS ORDERED: Calcium Carbonate 500 MG Tab.Chew PO PRN (14:43)
[2021-11-07] MEDS ORDERED: Ampicillin 1 GM in Sodium Chloride 0.9% 100 ML IV SCH (16:00)
[2021-11-07] MEDS ORDERED: Acetaminophen 325 MG Tab PO PRN (17:12)
[2021-11-07] MEDS ORDERED: Docusate Sodium 100 MG Cap PO PRN (17:12)
[2021-11-07] MEDS ORDERED: Witch Hazel Medicated Pads 40/Jar TOP PRN (17:12)
[2021-11-07] MEDS ORDERED: Benzocaine/Menthol 20%-0.5% Spray 78 GM Cannister TOP PRN (17:12)
[2021-11-08] MEDS: Ibuprofen 600 MG Tab PO PRN ×2 (05:54→14:47)
[2021-11-08] MEDS ORDERED: Prenatal Multivitamin with Calcium/Folic Acid/Iron Tab PO SCH (09:00)
[2021-11-08 15:29] VITALS: BP 119/80; PULSE 73
== END 2021-11-08 15:09 | disposition home or self-care (01) | DRG 560 ==
LOC: JD.OBCHECK 11:03 → OBSVTOIN 11:13 → JD.OB 11:13
PROVIDERS: ADMIT Obstetrics & Gynecology; ATTEND Obstetrics & Gynecology
PROC: 10907ZC Drainage of Amniotic Fluid, Therapeutic from Products of Conception, Via Natural or Artificial Opening (ICD-10-PCS; principal; 2021-11-07)
PROC: 10E0XZZ Delivery of Products of Conception, External Approach (ICD-10-PCS; 2021-11-07)
PROC: 3E0R3BZ Introduction of Anesthetic Agent into Spinal Canal, Percutaneous Approach (ICD-10-PCS; 2021-11-07)
PROC: 0KQM0ZZ Repair Perineum Muscle, Open Approach (ICD-10-PCS; 2021-11-07)
DX: O99.824 Streptococcus B carrier state complicating childbirth (principal); Z3A.38 38 weeks gestation of pregnancy; Z37.0 Single live birth; O70.1 Second degree perineal laceration during delivery; O69.81X0 Labor and delivery complicated by cord around neck, without compression, not applicable or unspecified
CPT/HCPCS: 01967; 36415; 51702; 59025; 59409; 85025; 86592; 86850; 86900; 86901; A9270-GY; J0290; J2590; J3010; J7120

== ENCOUNTER 2022-12-20 14:43 | Emergency (ER) | payer BC ==
[2022-12-20 15:03] VITALS: BP 129/97; PULSE 72
== END 2022-12-20 15:38 ==
LOC: JD.ED 14:43
DX: Z53.21 Procedure and treatment not carried out due to patient leaving prior to being seen by health care provider (principal)